=== PATIENT | female | born 1955 | race African-American/Black ===

== ENCOUNTER 2023-09-12 18:50 | Inpatient (IN) | payer MEDICARE, MEDICAID ==
[~2023-09-12] VITALS: Ht 165.1 cm; Wt 88.9 kg
[2023-09-12 19:30] VITALS: BP 101/76; PULSE 96; RESP 18; TEMP 97.9
[2023-09-12] MEDS ORDERED: NALOXONE HCL 0.4MG/ML 1ML VIAL IV PRN (19:30)
[2023-09-12] MEDS ORDERED: IPRATROPIUM/ALBUTEROL 0.5-3(2.5)MG/3ML NEB HHN PRN (19:30)
[2023-09-12] MEDS ORDERED: OXYC1TAB12 PO (20:23)
[2023-09-12] MEDS ORDERED: NICO-786 TP (20:23)
[2023-09-12] MEDS ORDERED: METO-396 PO (20:23)
[2023-09-12] MEDS: LEVETIRACETAM 500MG TABLET PO SCH (21:38)
[2023-09-12 21:59] LABS: CLARITY URINE CLEAR (CLEAR); COLOR URINE YELLOW (YELLOW); GLUCOSE URINE NEGATIVE (NEGATIVE); KETONES URINE NEGATIVE (NEGATIVE); LEUKOCYTE ESTERASE URINE TRACE (NEGATIVE); NITRITE URINE NEGATIVE (NEGATIVE); OCCULT BLOOD URINE TRACE (NEGATIVE); PROTEIN URINE NEGATIVE (NEGATIVE); SPECIFIC GRAVITY URINE 1.013 (1.005-1.030)
[2023-09-12] MEDS: HYDROCODONE/ACETAMINOPHEN 10/325MG TABLET PO PRN (22:10)
[2023-09-12 22:35] LABS: BACTERIA URINE TRACE; RBC URINE 0-2 /hpf (0-2); SQUAMOUS EPITHELIAL CELL URINE FEW /lpf (RARE/1+); WBC URINE 0-2 /hpf (0-2)
[2023-09-13] MEDS: PANTOPRAZOLE 40MG DR TABLET PO SCH (06:52)
[2023-09-13 08:00] VITALS: BP 111/63; PULSE 83; RESP 20; TEMP 98.1
[2023-09-13 13:00] LABS: HEMATOCRIT. 25.9 % (36.0-48.0); HEMOGLOBIN. 8.7 g/dL (12.0-16.0); MEAN CORPUSCULAR HEMOGLOBIN 35.4 pg (28.0-32.0); MEAN CORPUSCULAR HGB CONC 33.8 g/dL (31.0-37.0); MEAN CORPUSCULAR VOLUME 104.9 fL (81.0-99.0); MEAN PLATELET VOLUME 8.2 fl (7.4-10.4); PLATELET 331 x1000/uL (130-400); RED BLOOD CELL COUNT 2.47 mill/uL (4.2-5.4); RED CELL DISTRIBUTION WIDTH 24.5 % (11.6-14.6); WHITE BLOOD COUNT 11.9 x1000/uL (4.5-11.0)
[2023-09-13 13:02] LABS: DIFFERENTIAL COMMENT 1
[2023-09-13 13:15] LABS: ALANINE AMINOTRANSFERASE 23 IU/L (10-49); ALBUMIN 3.4 g/dL (3.2-4.8); ASPARTATE AMINOTRANSFERASE 27 IU/L (<34); BILIRUBIN TOTAL 0.3 mg/dL (0.1-1.0); CALCIUM 8.6 mg/dL (8.7-10.4); CARBON DIOXIDE 25 mEq/L (21-32); CHLORIDE 103 mEq/L (98-107); CREATININE 0.6 mg/dL (0.6-1.0); GLUCOSE 109 mg/dL (70-105); POTASSIUM 4.1 mEq/L (3.5-5.1); PROTEIN TOTAL 5.8 g/dL (6.0-8.3); SODIUM 135 mEq/L (136-145); UREA NITROGEN BLOOD 17 mg/dL (9-23)
[2023-09-13 15:58] LABS: MICROCYTOSIS 1+; PLATELET ESTIMATE NORMAL
[2023-09-13 20:00] VITALS: BP 107/49; PULSE 93; RESP 20; TEMP 98.4
[2023-09-13] MEDS ORDERED: INFLUENZA VACCINE 05/PF 0.5 ML SYRINGE IM ONE (21:00)
[2023-09-13 22:49] LABS: HEPATITIS A AB IGM NEGATIVE (Negative); HEPATITIS B CORE AB IGM NEGATIVE (Negative); HEPATITIS B SURFACE ANTIGEN NEGATIVE (Negative); HEPATITIS C AB NON REACTIVE (Neg) (Negative)
[2023-09-14] MEDS: TRAZODONE HCL 50MG TABLET PO SCH (01:11)
[2023-09-14 01:13] VITALS: BP 128/60; PULSE 92; RESP 18
[2023-09-14] MEDS: LACTULOSE 20G/30ML UDC PO PRN (06:36)
[2023-09-14 06:58] LABS: BASOPHILS % 0.1 % (0.0-2.0); EOSINOPHILS % 1.5 % (0.0-5.0); HEMATOCRIT. 24.7 % (36.0-48.0); HEMOGLOBIN. 8.8 g/dL (12.0-16.0); LYMPHOCYTES % 9.7 % (20.0-50.0); MEAN CORPUSCULAR HEMOGLOBIN 37.9 pg (28.0-32.0); MEAN CORPUSCULAR HGB CONC 35.8 g/dL (31.0-37.0); MEAN PLATELET VOLUME 8.1 fl (7.4-10.4); MONOCYTES % 11.6 % (2.0-8.0); NEUTROPHILS % 77.1 % (40.0-76.0); PLATELET 326 x1000/uL (130-400); RED BLOOD CELL COUNT 2.33 mill/uL (4.2-5.4); RED CELL DISTRIBUTION WIDTH 24.4 % (11.6-14.6); WHITE BLOOD COUNT 10.1 x1000/uL (4.5-11.0)
[2023-09-14 07:03] LABS: ALANINE AMINOTRANSFERASE 19 IU/L (10-49); ALBUMIN 3.3 g/dL (3.2-4.8); ASPARTATE AMINOTRANSFERASE 24 IU/L (<34); BILIRUBIN TOTAL 0.4 mg/dL (0.1-1.0); CALCIUM 8.6 mg/dL (8.7-10.4); CARBON DIOXIDE 26 mEq/L (21-32); CHLORIDE 104 mEq/L (98-107); GLUCOSE 88 mg/dL (70-105); IRON 20 ug/dL (50-170); POTASSIUM 3.5 mEq/L (3.5-5.1); PROTEIN TOTAL 5.6 g/dL (6.0-8.3); SODIUM 137 mEq/L (136-145); THYROID STIMULATING HORMONE 3.27 uIU/mL (0.55-4.78); TOTAL IRON BINDING CAPACITY 497 ug/dl (250-425); UREA NITROGEN BLOOD 10 mg/dL (9-23)
[2023-09-14 07:05] LABS: CREATININE 0.4 mg/dL (0.6-1.0)
[2023-09-14 07:13] LABS: FERRITIN 1041 ng/mL (10-291); FOLIC ACID (FOLATE) SERUM 2.79 ng/mL (>5.38); VITAMIN B12 SERUM 839 pg/mL (211-911)
[2023-09-14 07:29] LABS: DIFFERENTIAL COMMENT 1
[2023-09-14 07:30] LABS: ADD RBC MORPHOLOGY NO
[2023-09-14 08:00] VITALS: BP 122/61; PULSE 93; RESP 18; TEMP 97.2
[2023-09-14] MEDS: POLYETHYLENE GLYCOL 3350 (17GM) 1 DOSE PACK PO SCH (11:04)
[2023-09-14] MEDS: ASCORBIC ACID 500 MG TABLET PO SCH (11:04)
[2023-09-14] MEDS: BISACODYL 10MG SUPP PR SCH (11:04)
[2023-09-14] MEDS ORDERED: NA PHOS,M-B/NA PHOS,DI-BA ENEMA 118ML PR PRN (13:00)
[2023-09-14] MEDS: FERROUS SULFATE 325MG TABLET PO SCH (13:58)
[2023-09-14 20:00] VITALS: BP 99/48; PULSE 99; RESP 18; TEMP 97.2
[2023-09-15 08:00] VITALS: BP 109/61; PULSE 97; RESP 18; TEMP 98.3
[2023-09-15] MEDS: FOLIC ACID 1MG TABLET PO SCH (09:46)
[2023-09-15] MEDS: ERGOCALCIFEROL 50000UNITS CAPSULE PO SCH (17:03)
[2023-09-15 20:00] VITALS: BP 115/71; PULSE 71; RESP 20; TEMP 97.7
[2023-09-15] MEDS: THIAMINE HCL 200 MG in SODIUM CHLORIDE 0.9% 98 ML IV SCH (20:35)
[2023-09-16 08:00] VITALS: BP 114/56; PULSE 73; RESP 18; TEMP 97.6
[2023-09-16] MEDS: ASCORBIC ACID 500 MG TABLET PO SCH (16:50)
[2023-09-16 20:00] VITALS: BP 96/51; PULSE 74; RESP 20; TEMP 98.2
[2023-09-17 08:00] VITALS: BP 107/53; PULSE 108; RESP 18; TEMP 98.6
[2023-09-17] MEDS: ZINC SULFATE 220 MG ( 50 ) CAPSULE PO SCH (08:29)
[2023-09-17] MEDS: MULTIVITAMINS,THER W-MINERALS TABLET PO SCH (08:35)
[2023-09-17 20:00] VITALS: BP 103/67; PULSE 60; RESP 19; TEMP 97.8
[2023-09-17] MEDS: TRAMADOL 50MG TABLET PO PRN (21:18)
[2023-09-18 08:00] VITALS: BP 113/67; PULSE 108; RESP 18; TEMP 99
[2023-09-18 20:00] VITALS: BP 110/50; PULSE 108; RESP 18; TEMP 98.4
[2023-09-18 22:32] LABS: BASOPHILS % 0.3 % (0.0-2.0); LYMPHOCYTES % 10.3 % (20.0-50.0); MEAN CORPUSCULAR HEMOGLOBIN 34.7 pg (28.0-32.0); MEAN PLATELET VOLUME 7.1 fl (7.4-10.4); MONOCYTES % 8.2 % (2.0-8.0); NEUTROPHILS % 80.2 % (40.0-76.0); PLATELET 444 x1000/uL (130-400); RED BLOOD CELL COUNT 2.01 mill/uL (4.2-5.4); RED CELL DISTRIBUTION WIDTH 27.3 % (11.6-14.6); WHITE BLOOD COUNT 14.2 x1000/uL (4.5-11.0)
[2023-09-18 22:39] LABS: DIFFERENTIAL COMMENT 1; HEMATOCRIT. 20.5 % (36.0-48.0)
[2023-09-18 22:51] LABS: CALCIUM 8.6 mg/dL (8.7-10.4); CARBON DIOXIDE 25 mEq/L (21-32); CHLORIDE 104 mEq/L (98-107); CREATININE 0.6 mg/dL (0.6-1.0); GLUCOSE 109 mg/dL (70-105); POTASSIUM 4.5 mEq/L (3.5-5.1); SODIUM 136 mEq/L (136-145); UREA NITROGEN BLOOD 16 mg/dL (9-23)
[2023-09-19 08:00] VITALS: BP 104/48; PULSE 97; RESP 18; TEMP 97.5
[2023-09-19] MEDS ORDERED: LIDOCAINE HCL/EPINEPHRINE 1%-EPI 1:100,000 20 ML VIAL INFIL NR (09:00)
[2023-09-19] MEDS ORDERED: ONDANSETRON HCL 4MG/2ML INJ IV PRN (11:15)
[2023-09-19 12:18] LABS: CLARITY URINE CLEAR (CLEAR); COLOR URINE YELLOW (YELLOW); GLUCOSE URINE NEGATIVE (NEGATIVE); KETONES URINE NEGATIVE (NEGATIVE); LEUKOCYTE ESTERASE URINE TRACE (NEGATIVE); NITRITE URINE NEGATIVE (NEGATIVE); OCCULT BLOOD URINE NEGATIVE (NEGATIVE); PROTEIN URINE NEGATIVE (NEGATIVE); SPECIFIC GRAVITY URINE 1.009 (1.005-1.030); UROBILINOGEN URINE 0.2 E.U./dL (0.2-1.0)
[2023-09-19] MEDS: SODIUM HYPOCHLORITE 0.125% 473ML SOLUTION TOP SCH (12:30)
[2023-09-19 14:27] LABS: RBC URINE NONE SEEN /hpf (0-2); SQUAMOUS EPITHELIAL CELL URINE RARE /lpf (RARE/1+); WBC URINE 0-2 /hpf (0-2)
[2023-09-19 14:31] LABS: BACTERIA URINE NONE SEEN; YEAST URINE 2+
[2023-09-19 20:00] VITALS: BP 102/57; PULSE 96; RESP 18; TEMP 97.5
[2023-09-20 07:00] LABS: CARBON DIOXIDE 27 mEq/L (21-32); CHLORIDE 105 mEq/L (98-107); CREATININE 0.6 mg/dL (0.6-1.0); GLUCOSE 85 mg/dL (70-105); POTASSIUM 4.5 mEq/L (3.5-5.1); SODIUM 138 mEq/L (136-145); UREA NITROGEN BLOOD 8 mg/dL (9-23)
[2023-09-20 07:22] LABS: BASOPHILS % 0.6 % (0.0-2.0); EOSINOPHILS % 1.1 % (0.0-5.0); LYMPHOCYTES % 11.6 % (20.0-50.0); MEAN CORPUSCULAR HEMOGLOBIN 34.7 pg (28.0-32.0); MEAN CORPUSCULAR HGB CONC 34.7 g/dL (31.0-37.0); MEAN CORPUSCULAR VOLUME 100.2 fL (81.0-99.0); MEAN PLATELET VOLUME 7.4 fl (7.4-10.4); MONOCYTES % 8.7 % (2.0-8.0); PLATELET 527 x1000/uL (130-400); RED CELL DISTRIBUTION WIDTH 27.2 % (11.6-14.6)
[2023-09-20 08:00] VITALS: BP 92/49; PULSE 92; RESP 18; TEMP 97.5
[2023-09-20 08:15] LABS: DIFFERENTIAL COMMENT 1
[2023-09-20] MEDS ORDERED: HYDR200T35 PO (14:39)
[2023-09-20] MEDS ORDERED: HYDR200T35 MT (14:39)
[2023-09-20] MEDS: HYDROXYCHLOROQUINE SULFATE 200MG TABLET PO SCH (18:39)
[2023-09-20 20:00] VITALS: BP 101/57; PULSE 113; RESP 18; TEMP 97.5
[2023-09-21 08:00] VITALS: BP 142/70; PULSE 98; RESP 18; TEMP 97.3
[2023-09-21] MEDS: PIPERACILLIN/TAZO 3.375G/50ML 50 ML IV SCH (09:07)
[2023-09-21 12:13] LABS: BASOPHILS % 0.5 % (0.0-2.0); EOSINOPHILS % 1.4 % (0.0-5.0); LYMPHOCYTES % 11.2 % (20.0-50.0); MEAN CORPUSCULAR HEMOGLOBIN 33.4 pg (28.0-32.0); MEAN CORPUSCULAR HGB CONC 33.6 g/dL (31.0-37.0); MEAN CORPUSCULAR VOLUME 99.3 fL (81.0-99.0); MEAN PLATELET VOLUME 7.1 fl (7.4-10.4); MONOCYTES % 10.1 % (2.0-8.0); NEUTROPHILS % 76.8 % (40.0-76.0); PLATELET 494 x1000/uL (130-400); RED BLOOD CELL COUNT 2.07 mill/uL (4.2-5.4); RED CELL DISTRIBUTION WIDTH 28.3 % (11.6-14.6); WHITE BLOOD COUNT 10.1 x1000/uL (4.5-11.0)
[2023-09-21 12:22] LABS: ALANINE AMINOTRANSFERASE 14 IU/L (10-49); ALBUMIN 3.3 g/dL (3.2-4.8); ASPARTATE AMINOTRANSFERASE 26 IU/L (<34); BILIRUBIN TOTAL 0.4 mg/dL (0.1-1.0); CALCIUM 8.7 mg/dL (8.7-10.4); CARBON DIOXIDE 26 mEq/L (21-32); CHLORIDE 105 mEq/L (98-107); CREATININE 0.6 mg/dL (0.6-1.0); GLUCOSE 92 mg/dL (70-105); POTASSIUM 4.1 mEq/L (3.5-5.1); PROTEIN TOTAL 5.9 g/dL (6.0-8.3); SODIUM 136 mEq/L (136-145); UREA NITROGEN BLOOD 12 mg/dL (9-23)
[2023-09-21 12:38] LABS: DIFFERENTIAL COMMENT 1
[2023-09-21 12:42] LABS: HEMATOCRIT. 20.6 % (36.0-48.0); HEMOGLOBIN. 6.9 g/dL (12.0-16.0)
[2023-09-21] MEDS: MEROPENEM 1G/100ML 100 ML IV SCH (16:01)
[2023-09-21 20:00] VITALS: BP 110/48; PULSE 105; RESP 20; TEMP 97.3
[2023-09-21] MEDS: SENNOSIDES/DOCUSATE SOD 8.6/50MG TABLET PO SCH (21:23)
[2023-09-22] VITALS (7 sets, daily range): BP systolic 85–106; BP diastolic 40–60; PULSE 89–101; RESP 18–20; TEMP 97.7–98.4
[2023-09-22 07:39] LABS: BASOPHILS % 0.6 % (0.0-2.0); EOSINOPHILS % 2.1 % (0.0-5.0); HEMATOCRIT. 23.1 % (36.0-48.0); HEMOGLOBIN. 7.9 g/dL (12.0-16.0); LYMPHOCYTES % 17.2 % (20.0-50.0); MEAN CORPUSCULAR HEMOGLOBIN 33.2 pg (28.0-32.0); MEAN CORPUSCULAR HGB CONC 34.2 g/dL (31.0-37.0); MEAN CORPUSCULAR VOLUME 97.2 fL (81.0-99.0); MEAN PLATELET VOLUME 6.9 fl (7.4-10.4); MONOCYTES % 12.2 % (2.0-8.0); NEUTROPHILS % 67.9 % (40.0-76.0); PLATELET 465 x1000/uL (130-400); RED BLOOD CELL COUNT 2.38 mill/uL (4.2-5.4); RED CELL DISTRIBUTION WIDTH 26.9 % (11.6-14.6); WHITE BLOOD COUNT 9.7 x1000/uL (4.5-11.0)
[2023-09-22 07:58] LABS: DIFFERENTIAL COMMENT 1
[2023-09-22 08:18] LABS: CALCIUM 8.9 mg/dL (8.7-10.4); CARBON DIOXIDE 27 mEq/L (21-32); CHLORIDE 106 mEq/L (98-107); CREATININE 0.7 mg/dL (0.6-1.0); GLUCOSE 94 mg/dL (70-105); POTASSIUM 4.2 mEq/L (3.5-5.1); SODIUM 139 mEq/L (136-145); UREA NITROGEN BLOOD 18 mg/dL (9-23)
[2023-09-22] MEDS: NA PHOS,M-B/NA PHOS,DI-BA ENEMA 118ML PR NR (21:00)
[2023-09-23 08:00] VITALS: BP 92/52; PULSE 95; RESP 17; TEMP 98.4
[2023-09-23 10:08] VITALS: RESP 18
[2023-09-23] MEDS ORDERED: LIDOCAINE HCL 1% 10 MG/ML 10ML VIAL ONE (10:41)
[2023-09-23 12:24] VITALS: BP 110/60; PULSE 95; TEMP 98.4; O2SAT 97
== END 2023-09-23 14:15 | DRG 40 ==
PROVIDERS: ADMIT Psychiatry & Neurology Neurology; ATTEND Internal Medicine
PROC: 0KBP0ZZ Excision of Left Hip Muscle, Open Approach (ICD-10-PCS; principal; 2023-09-19)
PROC: 0KBN0ZZ Excision of Right Hip Muscle, Open Approach (ICD-10-PCS; 2023-09-19)
PROC: 30233N1 Transfusion of Nonautologous Red Blood Cells into Peripheral Vein, Percutaneous Approach (ICD-10-PCS; 2023-09-22)
DX: S06.5X0A Traumatic subdural hemorrhage without loss of consciousness, initial encounter (principal); G82.50 Quadriplegia, unspecified; L89.154 Pressure ulcer of sacral region, stage 4; G93.40 Encephalopathy, unspecified; S06.5XAA Traumatic subdural hemorrhage with loss of consciousness status unknown, initial encounter; M32.9 Systemic lupus erythematosus, unspecified; F17.200 Nicotine dependence, unspecified, uncomplicated; D72.829 Elevated white blood cell count, unspecified; D64.9 Anemia, unspecified; E53.8 Deficiency of other specified B group vitamins; E55.9 Vitamin D deficiency, unspecified; F39 Unspecified mood [affective] disorder; G89.4 Chronic pain syndrome; I10 Essential (primary) hypertension; R13.10 Dysphagia, unspecified; F17.290 Nicotine dependence, other tobacco product, uncomplicated; R26.9 Unspecified abnormalities of gait and mobility; R47.1 Dysarthria and anarthria; D50.9 Iron deficiency anemia, unspecified; G47.00 Insomnia, unspecified; M48.061 Spinal stenosis, lumbar region without neurogenic claudication; M51.16 Intervertebral disc disorders with radiculopathy, lumbar region; R10.2 Pelvic and perineal pain; R29.6 Repeated falls; R19.5 Other fecal abnormalities; R53.1 Weakness; R53.81 Other malaise; Z96.643 Presence of artificial hip joint, bilateral; Z92.3 Personal history of irradiation; Z91.81 History of falling; Z85.41 Personal history of malignant neoplasm of cervix uteri; Z82.49 Family history of ischemic heart disease and other diseases of the circulatory system; W18.2XXA Fall in (into) shower or empty bathtub, initial encounter; Y93.89 Activity, other specified; Y92.89 Other specified places as the place of occurrence of the external cause; Y99.8 Other external cause status
CPT/HCPCS: 36415; 80048; 80053; 81003; 82270; 82306; 82607; 82728; 82746; 83036; 83540; 83550; 84145; 84443; 85025; 85044; 86705; 86709; 86850; 86900; 86920; 87070; 87077; 87186; 87340; 90686; 92523; 92610; 97110; 97116; 97162; 97166; 97530; 97535; J2185; J2543; J3411; J3490; J7030; J7050; P9016; A5200

== ENCOUNTER 2023-09-24 21:35 | Inpatient (IN) | payer MEDICARE, MEDICAID ==
[~2023-09-24] VITALS: Ht 182.9 cm; Wt 70.3 kg
[~2023-09-24 21:35] MED LIST: HYDR200T35 MT; HYDR200T35 PO; METO-396 PO; NICO-786 TP; OXYC1TAB12 PO
[2023-09-24] MEDS: SODIUM CHLORIDE 0.9% 1,000 ML IV ONE (22:45)
[2023-09-24 22:49] LABS: CLARITY URINE CLEAR (CLEAR); COLOR URINE YELLOW (YELLOW); GLUCOSE URINE NEGATIVE (NEGATIVE); KETONES URINE NEGATIVE (NEGATIVE); LEUKOCYTE ESTERASE URINE 1+ (NEGATIVE); NITRITE URINE NEGATIVE (NEGATIVE); OCCULT BLOOD URINE TRACE (NEGATIVE); PH URINE 6.5 (4.5-8.0); PROTEIN URINE NEGATIVE (NEGATIVE); SPECIFIC GRAVITY URINE 1.008 (1.005-1.030); UROBILINOGEN URINE 0.2 E.U./dL (0.2-1.0)
[2023-09-24 23:04] LABS: BASOPHILS % 0.7 % (0.0-2.0); EOSINOPHILS % 2.5 % (0.0-5.0); HEMATOCRIT. 22.7 % (36.0-48.0); HEMOGLOBIN. 7.8 g/dL (12.0-16.0); LYMPHOCYTES % 22.6 % (20.0-50.0); MEAN CORPUSCULAR HEMOGLOBIN 33.7 pg (28.0-32.0); MEAN CORPUSCULAR HGB CONC 34.3 g/dL (31.0-37.0); MEAN CORPUSCULAR VOLUME 98.5 fL (81.0-99.0); MEAN PLATELET VOLUME 6.9 fl (7.4-10.4); MONOCYTES % 14.8 % (2.0-8.0); NEUTROPHILS % 59.4 % (40.0-76.0); PLATELET 488 x1000/uL (130-400); RED CELL DISTRIBUTION WIDTH 27.2 % (11.6-14.6)
[2023-09-24 23:09] LABS: ADD RBC MORPHOLOGY YES; DIFFERENTIAL COMMENT 1
[2023-09-24 23:16] LABS: INR 0.9; PARTIAL THROMBOPLASTIN TIME 28.8 sec (23.4-31.0); PROTHROMBIN TIME 10.4 sec (9.6-11.0)
[2023-09-24 23:18] LABS: ALANINE AMINOTRANSFERASE 13 IU/L (10-49); ALBUMIN 3.9 g/dL (3.2-4.8); ASPARTATE AMINOTRANSFERASE 26 IU/L (<34); BILIRUBIN TOTAL 0.3 mg/dL (0.1-1.0); CARBON DIOXIDE 26 mEq/L (21-32); CHLORIDE 107 mEq/L (98-107); CREATININE 0.6 mg/dL (0.6-1.0); GLUCOSE 84 mg/dL (70-105); POTASSIUM 4.2 mEq/L (3.5-5.1); PROTEIN TOTAL 7.3 g/dL (6.0-8.3); SODIUM 139 mEq/L (136-145); UREA NITROGEN BLOOD 11 mg/dL (9-23)
[2023-09-24 23:23] LABS: BACTERIA URINE 1+; SQUAMOUS EPITHELIAL CELL URINE 1+ /lpf (RARE/1+)
[2023-09-24 23:24] LABS: RBC URINE 0-2 /hpf (0-2)
[2023-09-24 23:28] LABS: ANISOCYTOSIS 2+; HYPOCHROMASIA 1+; PLATELET ESTIMATE INCREASED
[2023-09-24 23:30] LABS: TARGET CELLS FEW
[2023-09-24] MEDS: MORPHINE SULFATE 4 MG/ML CPJ (NOT FOR IM USE) IV STA (23:50)
[2023-09-24] MEDS: ONDANSETRON HCL 4MG/2ML INJ IV STA (23:50)
[2023-09-25] MEDS: CEFTRIAXONE 1GM/50ML 50 ML IV ONE (01:39)
[2023-09-25 04:34] VITALS: BP 141/77; PULSE 96; RESP 18; TEMP 98.1
[2023-09-25 08:20] VITALS: BP 110/56; PULSE 105; RESP 20; TEMP 98.6
[2023-09-25 10:46] VITALS: BP 110/56; PULSE 105; RESP 20; TEMP 98.6
[2023-09-25] MEDS: HYDROCODONE/ACETAMINOPHEN 5/325MG TABLET PO PRN (11:00)
[2023-09-25 12:00] VITALS: BP 147/76; PULSE 107; RESP 18; TEMP 97.7
[2023-09-25] MEDS: METOPROLOL SUCCINATE 25MG ER TABLET PO SCH (15:16)
[2023-09-25 17:13] VITALS: BP_SYST 101; PULSE 94; RESP 20; TEMP 96.6
[2023-09-25] MEDS: HYDROXYCHLOROQUINE SULFATE 200MG TABLET PO SCH (17:19)
[2023-09-25] MEDS ORDERED: NALOXONE HCL 0.4MG/ML VIAL IV PRN (19:00)
[2023-09-25 20:00] VITALS: BP 111/63; PULSE 95; RESP 18; TEMP 97.7
[2023-09-25] MEDS: LEVETIRACETAM 500MG/5ML CUP PO SCH (20:19)
[2023-09-25] MEDS: CEFTRIAXONE 1,000 MG in DEXTROSE 5% WATER 50 ML IV SCH (23:00)
[2023-09-26] VITALS: BP 134/69; PULSE 99; RESP 20; TEMP 97.9
[2023-09-26 04:00] VITALS: BP 120/70; PULSE 112; RESP 20; TEMP 97.2
[2023-09-26 08:00] VITALS: BP 117/60; PULSE 89; RESP 18; TEMP 97.8
[2023-09-26 08:22] LABS: ALBUMIN 3.9 g/dL (3.2-4.8); PREALBUMIN 15.1 mg/dl (10.0-40.0)
[2023-09-26] MEDS: METOPROLOL SUCCINATE 50MG ER TABLET PO SCH (10:58)
[2023-09-26] MEDS: POLYETHYLENE GLYCOL 3350 (17GM) 1 DOSE PACK PO PRN (10:59)
[2023-09-26] MEDS ORDERED: KEPPSOL PO (11:49)
[2023-09-26 12:00] VITALS: BP 90/54; PULSE 103; RESP 18; TEMP 97.6
[2023-09-26 16:00] VITALS: BP 118/53; PULSE 96; RESP 19; TEMP 98.4
[2023-09-26 20:00] VITALS: BP 97/52; PULSE 103; RESP 18; TEMP 96.6
[2023-09-27] VITALS: BP 97/46; PULSE 96; RESP 18; TEMP 97.7
[2023-09-27 04:00] VITALS: BP 101/65; PULSE 96; RESP 18; TEMP 97.9
[2023-09-27 08:00] VITALS: BP 119/47; PULSE 88; RESP 19; TEMP 98.1
[2023-09-27 12:00] VITALS: BP 104/60; PULSE 82; RESP 20; TEMP 98.3
[2023-09-27 14:42] VITALS: BP 104/60; PULSE 82; TEMP 98.3; O2SAT 100
[2023-09-27 16:47] VITALS: BP 104/60; PULSE 82; RESP 19
== END 2023-09-27 17:32 | disposition home health service (06) | DRG 698 ==
LOC: ER 21:35 → 7WST 09-25 02:07 → EDBEDREQ 09-25 02:11 → 6EST 09-25 22:34
PROVIDERS: ADMIT Internal Medicine; ATTEND Internal Medicine
DX: T83.028A Displacement of other urinary catheter, initial encounter (principal); L89.154 Pressure ulcer of sacral region, stage 4; N39.0 Urinary tract infection, site not specified; N93.9 Abnormal uterine and vaginal bleeding, unspecified; D25.9 Leiomyoma of uterus, unspecified; K57.90 Diverticulosis of intestine, part unspecified, without perforation or abscess without bleeding; D64.9 Anemia, unspecified; R16.0 Hepatomegaly, not elsewhere classified; X58.XXXA Exposure to other specified factors, initial encounter
CPT/HCPCS: 36415; 71045; 74176; 76856; 80053; 81003; 82040; 84134; 85025; 86850; 86900; 93005; 99285; J0696; J2270; J2405; J7030; J7060